=== PATIENT | female | born 1940 | race Caucasian/White ===

== ENCOUNTER → 2017-05-13 | Outpatient (CLI) | payer OTHER ==
--- NOTE | 2017-05-13 12:55 | DI ---
CT BONE DENSITOMETRY OF THE SPINE AND HIP, 05/13/2017 11:29 AM : Clinical History: Asymptomatic post menopausal patient. Screening. Previous Exam: None at this facility. 3D Quantitative CT (QCT) Bone Mineral Densitometry: The [place] scans are normal. Low dose scans are obtained of the lumbar spine and sampling is obtaine d through the midbodies of L1 and L2. The average volumetric bone mineral density (BMD) of the lumbar spine is 74.8 mg/cm3. This value corresponds to a volumetric T-score of -3.6 and Z-score of -0.2 as assessed by this BMD software. Volumetric 3D QCT and areal DEXA T-scores and Z-scores are not directl y equivalent. Using the [employer]'s (ACR) volumetric QCT trabecular spine BMD con version table that is closely equivalent to the areal WHO diagnostic categories, this patient falls i nto the category of osteoporosis. CT X-Ray Absorptiometry (CTXA) Hip Bone Mineral Densitometry: Low dose scans are obtained through the hips for assessment of bone mineral density (BMD) and T-score s and Z-scores of the left hip. Total hip BMD: 0.558 mg/cm2 T-score: New 3.1 Z-score: Femoral neck BMD: 0.536 mg/cm2 T-score: -2.3 Z-score: Note: T-scores of the spine and hip exhibit discordant readings approximately 40% of the time in eval uated patients. Changes in BMD determined either by volumetric QCT or areal DEXA are more reliable in assessment of change in a patient's BMD status rather than changes in T-scores. The CTXA hip CT bone mineral density measurements and the resultant T-scores and Z-scores are exact hip DEXA scan equival ents. The femoral neck T-score can be used in the WHO's FRAX program for assessing an untreated patie nt's 10 year fracture risk. READING: Osteoporosis of the spine and left total hip.
== END ==
LOC: CT 11:18
PROVIDERS: ATTEND Family Medicine
DX: M81.0 Age-related osteoporosis without current pathological fracture (principal)
CPT/HCPCS: 77078